=== PATIENT | male | born 1945 | race American Indian/Alaskan Native ===

== ENCOUNTER 2017-06-06 14:17 | Emergency (ER) | payer OTHER ==
[2017-06-06 14:59] VITALS: TEMP 98.4; BMI 24.1
--- NOTE | 2017-06-06 15:16 | ED PDOC ---
Arrival/HPI - General Chief Complaint: Lower Extremity Problem/Injury Time Seen by Provider: 06/06/17 15:12 Historian: Patient - History of Present Illness Narrative History of Present Illness (Text): 06/06/17 15:13 This 71 yo male presents to this ED presents to this ED c/o right ankle pain and swelling x 7 days. Patient stated pain started pressing breaks of his car. Denies fall, trauma. Patient admits symptoms have improved, so it allows him to come to ED. Denies other somatic complains. Time/Duration: 1 week Context: Home Past Medical History - Provider Review Nursing Documentation Reviewed: Yes - Infectious Disease Hx of Infectious Diseases: None - Tetanus Immunization Tetanus Immunization: Unknown - Cardiac Hx Cardiac Disorders: Yes Hx Hypertension: Yes - Psychiatric Hx Substance Use: No Family/Social History - Physician Review Nursing Documentation Reviewed: Yes Family/Social History: Other (noncontributory) Smoking Status: Never Smoked Hx Alcohol Use: No Hx Substance Use: No Allergies/Home Meds Allergies/Adverse Reactions: Allergies No Known Allergies Allergy (Verified 06/06/17 14:57) Home Medications: Home Meds Medication Instructions Recorded Confirmed Atenolol/Chlorthalidone 1 each PO DAILY 10/09/15 06/06/17 [Atenolol-Chlorthalidone 50-25] Atorvastatin Calcium [Lipitor] 20 mg PO DAILY 10/09/15 06/06/17 Review of Systems - Review of Systems Constitutional: Normal. absent: Fatigue, Weight Change, Fevers Eyes: Normal ENT: Normal Respiratory: Normal Cardiovascular: Normal Gastrointestinal: Normal Genitourinary Male: Normal Musculoskeletal: Other (ankle pain) Skin: Normal Neurological: Normal Endocrine: Normal Hemo/Lymphatic: Normal Psychiatric: Normal Physical Exam Vital Signs Temp Pulse Resp BP Pulse Ox 06/06/17 14:50 98.4 F 65 18 122/73 99 Temperature: Afebrile Blood Pressure: Normal Pulse: Regular Respiratory Rate: Normal Appearance: Positive for: Well-Appearing, Non-Toxic, Comfortable Pain Distress: None Mental Status: Positive for: Alert and Oriented X 3 - Systems Exam Head: Present: Atraumatic, Normocephalic Upper Extremity: Present: Normal Inspection, Normal ROM, NORMAL PULSES. No: Edema Lower Extremity: Present: NORMAL PULSES, Neurovascularly Intact, Capillary Refill < 2 s, Other ((+) mild swelling and tenderness over right medial malleoulus area. No deformity. Vera test was negative. no posterior ankle tenderness. No calf tenderness. ROM decreased due to pain. No tenderness on base of 5th metatarsal or right foot. No foot tenderness. No toe tenderness. No skin rash, erythema, or abscesss). No: Edema, CALF TENDERNESS, Sara's Sign, Erythema, Deformity, Temperature Abnormalties Neurological: Present: GCS=15, CN II-XII Intact, Speech Normal, Motor Func Grossly Intact, Normal Sensory Function, Normal Cerebellar Funct, Gait Normal Skin: Present: Warm, Dry, Normal Color. No: Rashes Psychiatric: Present: Alert, Oriented x 3, Normal Insight, Normal Concentration Medical Decision Making ED Course and Treatment: 06/06/17 16:01 Re-evaluation. Patient feels better. Discussed results and plan with patient who expresses understanding. All questions answered and there is agreement with the plan to discharge home with instructions. Patient stable for discharge. Return if symptoms persist or worsen. Patient was recommended to follow up visit in 2-3 days. Continue with RICE. Return to ED if pain worsen. Re-evaluation Time: 16:01 Reassessment Condition: Re-examined, Improved - RAD Interpretation Narrative RAD Interpretations (Text): 06/06/17 16:02 Ankle x-rays: No Fx. or sublux. (+) DJD Radiology Orders: 06/06/17 15:12 ANKLE RIGHT 3 VIEWS ROUTINE [RAD] Stat - Procedure PROCEDURE NOTE (Text): 06/06/17 16:02 Patient came with home air cast. I ordered eli bandage, and a cane. Disposition/Present on Arrival - Present on Arrival Any Indicators Present on Arrival: No History of DVT/PE: No History of Uncontrolled Diabetes: No Urinary Catheter: No History of Decub. Ulcer: No History Surgical Site Infection Following: None - Disposition Have Diagnosis and Disposition been Completed?: Yes Diagnosis: Ankle pain Disposition: HOME/ ROUTINE Disposition Time: 16:03 Patient Plan: Discharge Patient Problems: Current Active Problems Problem Status Onset Ankle pain Acute Condition: GOOD Discharge Instructions (ExitCare): Ankle Sprain (ED) Additional Instructions: Call private [employer] [facility] office for follow up visit in 2-3 days. Take OTC Tylenol or Motrin for pain as needed with food. Keep ankle elevated, rest, ice pack, cane eli bandage for at least 5 days. Remove eli bandage at bedtime. Referrals: [facility], [Primary Care Provider] - Follow up with primary Leah Carmichael DPM [Staff Provider] - Follow up with primary Forms: [employer] (Tajik)
[2017-06-06 16:30] VITALS: BP 129/72; PULSE 66; RESP 16; O2SAT 97
--- NOTE | 2017-06-06 17:17 | RAD ---
PROCEDURE: Right Ankle Radiographs. HISTORY: medial malleoulus pain COMPARISON: None FINDINGS: BONES: Normal. No fracture. JOINTS: Normal. No osteoarthritis. Ankle mortise maintained. Talar dome intact SOFT TISSUES: Normal. OTHER FINDINGS: None. IMPRESSION: Normal right ankle radiographs.
== END 2017-06-06 16:31 | disposition home or self-care (01) ==
LOC: ED 14:17
DX: M25.571 Pain in right ankle and joints of right foot (principal); I10 Essential (primary) hypertension